=== PATIENT | female | born 1950 | race Caucasian/White ===

== ENCOUNTER → 2016-03-15 | Outpatient (CLI) | payer OTHER, MEDICARE ==
--- NOTE | 2016-03-15 14:30 | DX ---
DEXA Bone Mineral Densitometry Clinical Indications: Postmenopausal, loss of height, Fosamax x5 years, thyroid disease, follow-up o steoporosis Comparison: 07/01/13 (osteoporosis) Technique: Bone Mineral Densitometry (BMD) by Dual Energy X-Ray Absorptiometry (DEXA) was performed utilizing the Jovie scanner. The lumbar spine was evaluated in the AP projection. The bilat eral hips and forearm were evaluated in the AP projection. Vertebral fracture assessment was also pe rformed. AP Lumbar Spine: The L1and L2 vertebral bodies were evaluated.L3 and L4 are excluded due to degener ative sclerosis. BMD: 1.018 gm/cm2 T-score: -1.3 SD Z-score: 0.7 SD No significant change in L1 and L2. AP Left Hip: Total BMD: 0.846 gm/cm2 T-score: -1.3 SD Z-score: 0.3 SD No significant change. AP Right Hip: Total BMD: 0.892 gm/cm2 T-score: -0.9 SD Z-score: 0.6 SD Total BMD has increased by 4.4%. AP Left Forearm, 03/01: BMD: 0.648 gm/cm2 T-score: -2.6 SD Z-score: -1.1 SD No significant change. Vertebral Fracture Assessment: No significant fracture deformity. No prevertebral aortic calcificati on, significant marginal bone spurring, facet arthrosis, or intrinsic vertebral body sclerosis that would effect the accuracy of the lumbar spine BMD measurement. Conclusion: Considering the lowest measured site, the patient remains osteoporotic in the increased risk for fracture. Fosamax should be continued, as clinically directed. Since the forearm is the lowe st measured site, it would be worthwhile to exclude hyperparathyroidism. The ten year FRAX risk for any major osteoporotic fracture , which excludes the risk for a wrist frac ture, is 7.1% and for a hip fracture is 0.6%. To promote the patient's bone density, the following recommendations should be considered: 1. Pursue a regular regimen of weightbearing and muscle strengthening exercises in order to reduce t he risk of falls and fractures (as tolerated by the patient's general medical condition). 2. Ensure that daily dietary calcium uptake is maximized. 3. Consider checking the serum vitamin D level. Ensure that intake of vitamin D is 800 IU per day . 4. Consider follow-up DEXA scan in 1 year to reassess the efficacy of pharmacologic intervention.
== END ==
LOC: BRMIMAGING 10:45
PROVIDERS: ATTEND Family Medicine
DX: Z13.820 Encounter for screening for osteoporosis (principal); M81.0 Age-related osteoporosis without current pathological fracture; E07.9 Disorder of thyroid, unspecified; Z78.0 Asymptomatic menopausal state

== ENCOUNTER → 2016-03-31 | Outpatient (CLI) | payer OTHER, MEDICARE ==
--- NOTE | 2016-03-31 10:16 | CT ---
CT Chest Without Contrast 0 933 hours Indication: Follow-up pulmonary nodules (R 91.8). Previous tobacco use. Technique: Spiral images were obtained through the chest. Images were reviewed in multiple planes . Dose reduction techniques were utilized. Comparison: September 07, 2015. Findings: Lung and large airways: Small less than 4 mm pulmonary nodules are once again identified bilaterally predominantly involving the upper lobes that are stable in the right upper lobe on series 3, image 44 and image 54 that were mentioned previously as well as in the left upper lobe on image 68 and image 73. There are no new pulmonary nodules when compared to the prior study. Scattered emphysematous plata ges are suspected predominantly involving the upper lobes. There is a 3 mm calcified granuloma left u pper lobe anteriorly image 71. There is no new consolidation or effusion.. Bronchi: No significant bronchial wall thickening Pleura: Normal. Vessels: Atherosclerotic calcification is noted at the aortic arch level and at the origin of the lef t subclavian artery as well as a few scattered calcified plaques involving the coronary arteries. Heart and pericardium: Normal. Mediastinum and inocencio: No mass or lymphadenopathy. Chest wall and lower neck: Normal. Limited upper abdomen: No significant abnormality. Skeletal system: Vertebral body heights are well-maintained. There are no lytic or sclerotic osseous lesions. Impression: 1. Small probably benign bilateral pulmonary nodules predominantly involving the upper lobes stable a nd compared to the prior study. These are probably post infectious or post inflammatory. Consider 1 a dditional follow-up in 12-18 months to confirm stability and benign features. 2. Emphysematous changes predominantly involving the upper lobes. 3. Arteriosclerotic calcification involving the thoracic aorta and coronary arteries.
== END ==
LOC: CIMAGING 09:09
PROVIDERS: ATTEND Family Medicine
DX: R91.8 Other nonspecific abnormal finding of lung field (principal); I70.0 Atherosclerosis of aorta; I25.10 Atherosclerotic heart disease of native coronary artery without angina pectoris
CPT/HCPCS: 71250-PO

== ENCOUNTER → 2016-07-29 | Outpatient (CLI) | payer OTHER, MEDICARE | LOC: BRMIMAGING 10:37 | PROVIDERS: ATTEND Family Medicine | DX: Z12.31 Encounter for screening mammogram for malignant neoplasm of breast (principal); Z80.3 Family history of malignant neoplasm of breast | CPT/HCPCS: G0202 ==

== ENCOUNTER → 2017-04-21 | Outpatient (CLI) | payer OTHER, MEDICARE | LOC: BRMIMAGING 08:32 | PROVIDERS: ATTEND Family Medicine | DX: Z13.820 Encounter for screening for osteoporosis (principal); M81.0 Age-related osteoporosis without current pathological fracture; Z78.0 Asymptomatic menopausal state ==

== ENCOUNTER → 2017-07-31 | Outpatient (CLI) | payer OTHER, MEDICARE | LOC: BRMIMAGING 11:07 | PROVIDERS: ATTEND Family Medicine | DX: Z12.31 Encounter for screening mammogram for malignant neoplasm of breast (principal); Z80.3 Family history of malignant neoplasm of breast ==

== ENCOUNTER → 2018-05-20 | Outpatient (CLI) | payer OTHER, MEDICARE | LOC: CIMAGING 10:03 | PROVIDERS: ATTEND Family Medicine | DX: Z09 Encounter for follow-up examination after completed treatment for conditions other than malignant neoplasm (principal); R91.1 Solitary pulmonary nodule; J44.9 Chronic obstructive pulmonary disease, unspecified; Z87.891 Personal history of nicotine dependence | CPT/HCPCS: 71250-PO ==

== ENCOUNTER → 2018-08-20 | Outpatient (CLI) | payer OTHER, MEDICARE | LOC: BRMIMAGING 10:48 ==